=== PATIENT | female | born 1960 | race Caucasian/White ===

== ENCOUNTER 2021-09-09 07:01 | Day surgery (SDC) | payer OTHER ==
[~2021-09-09] VITALS: Ht 165.1 cm; Wt 69.6 kg
[2021-09-09] MEDS ORDERED: ZOLOFT 50MG50 MG PO (07:29)
[2021-09-09 09:50] VITALS: BP 112/83; PULSE 70; TEMP 97.4
[2021-09-09 10:05] VITALS: BP 128/81; PULSE 62
[2021-09-09 10:20] VITALS: BP 118/86; PULSE 65
--- NOTE | 2021-09-09 10:42 | NUR ---
0950: Patient brought back into [facility] from endo procedure. Report received from DENA Putnam. Patient vitally stable on room air. Denies pain or nausea. Requesting blueberry muffins and water. Sister at bedside. Call light left within reach. 0925: Dr. Bourne in to see patient. 1005: Patient tolerating food and drink well. Denies pain or nausea. Vital signs stable on room air. 1020: Patient meets discharge criteria. IV removed without complications. Went through discharge instructions with patient and . Questions answered. Patient got dressed and escorted to the patient entrance via wheelchair. Patient got into personal vehicle and left in the care of their family member.
[2021-09-09 14:59] VITALS: BP 97/75; PULSE 84; TEMP 98
== END 2021-09-09 10:30 | disposition home or self-care (01) ==
LOC: SDCO 07:01
DX: Z12.11 Encounter for screening for malignant neoplasm of colon (principal); D12.5 Benign neoplasm of sigmoid colon; D12.8 Benign neoplasm of rectum; K57.30 Diverticulosis of large intestine without perforation or abscess without bleeding; Z80.0 Family history of malignant neoplasm of digestive organs
CPT/HCPCS: J2704; J7120

== ENCOUNTER → 2023-05-08 | Outpatient (CLI) | payer OTHER ==
[~2023-05-08] MED LIST: ZOLOFT 50MG50 MG PO
== END ==
LOC: MC.RAD 11:43
DX: Z12.31 Encounter for screening mammogram for malignant neoplasm of breast (principal)